=== PATIENT | female | born 1955 | race Caucasian/White ===

== ENCOUNTER 2024-10-21 07:06 | Day surgery (SDC) | payer MEDICARE ==
[~2024-10-21] VITALS: Ht 162.6 cm; Wt 63.6 kg
--- NOTE | 2024-10-21 07:17 | NUR ---
10/21/24 0717 Taty Bermudez USING TATY'S SIGN ON BECAUSE MY PASSWORD IS AND CAN'T USE MY BADGE AT THE MOMENT. -[facility]
[2024-10-21] MEDS ORDERED: MOTRIN IB200 MG (07:18)
[2024-10-21] MEDS ORDERED: LOSA50 (07:18)
[2024-10-21] MEDS ORDERED: AMIT75 (07:18)
[2024-10-21] MEDS ORDERED: Vitamin C100 M1 (07:19)
[2024-10-21] MEDS ORDERED: ALEN70 (07:19)
[2024-10-21] MEDS ORDERED: propofoL 50 ML IV ONE (07:24)
[2024-10-21] MEDS ORDERED: Lactated Ringer's 1,000 ML IV ONE ×2 (07:24→07:54)
[2024-10-21] MEDS ORDERED: TRAM50 (07:27)
[2024-10-21] MEDS ORDERED: [UNRECOGNIZED DRUG - OTHER] (07:27)
[2024-10-21 09:06] VITALS: BP 131/76
== END 2024-10-21 08:55 | disposition home or self-care (01) ==
LOC: ORSCSDS 07:06
PROVIDERS: Surgery
PROC: 0DBN8ZX Excision of Sigmoid Colon, Via Natural or Artificial Opening Endoscopic, Diagnostic (ICD-10-PCS; principal; 2024-10-21 08:00)
PROC: 0DBH8ZX Excision of Cecum, Via Natural or Artificial Opening Endoscopic, Diagnostic (ICD-10-PCS; principal; 2024-10-21 08:00)
PROC: 0DBL8ZX Excision of Transverse Colon, Via Natural or Artificial Opening Endoscopic, Diagnostic (ICD-10-PCS; principal; 2024-10-21 08:00)
PROC: 0DBP8ZX Excision of Rectum, Via Natural or Artificial Opening Endoscopic, Diagnostic (ICD-10-PCS; principal; 2024-10-21 08:00)
DX: Z12.11 Encounter for screening for malignant neoplasm of colon (principal); Z86.0100 Personal history of colon polyps, unspecified; K64.1 Second degree hemorrhoids; D12.1 Benign neoplasm of appendix; D12.3 Benign neoplasm of transverse colon; K63.5 Polyp of colon; K62.1 Rectal polyp; Z90.49 Acquired absence of other specified parts of digestive tract; Z87.891 Personal history of nicotine dependence; Z79.82 Long term (current) use of aspirin; Z79.899 Other long term (current) drug therapy
CPT/HCPCS: 88305; J2704; J7120